=== PATIENT | female | born 1970 | race African-American/Black ===

== ENCOUNTER 2017-05-07 19:49 | Emergency (ER) | payer SELFPAY ==
[2017-05-07 20:05] VITALS: BP 167/113
[2017-05-07] MEDS ORDERED: HYDR-971 PO (20:39)
--- NOTE | 2017-05-07 20:39 | PHYS DOC ---
Past Medical History Past Medical History: Arthritis, Asthma, Hypertension, Other Additional Past Medical Histor: HEART MURMUR Past Surgical History: Tubal ligation, Other Additional Past Surgical Histo: RHINOPLASTY Alcohol Use: None Drug Use: None Adult General Chief Complaint Chief Complaint: PAIN CONTROL [facility] HPI Patient is a 47 year old female presents to the emergency department stating she is having bilateral knee pain and discomfort. Patient states that she has history of arthritis in both knees. Patient states she had been seeing in which she has been unable to see him due to no insurance. She states that he is requesting large amount of money upfront piece seen. Patient states she needs bilateral knee replacements but cannot afford to have that completed. She states that she has taken hydrocodone in the past for severe pain and discomfort however has not had the medication for quite some time. She states that she has taken Advil 400 mg with minimal relief. She also states that she has been taking Percogesic which had been helping with the pain and discomfort however is not helping any longer. Patient denies any numbness or tingling in bilateral lower extremities. Patient states that she has been recently needing to use a crutch to ambulate. Patient denies any injury or trauma to the knees. She does state that she feels that she has ewkd-im-[id number] grinding. Review of Systems Review of Systems Constitutional: Denies fever or chills [] Eyes: Denies change in visual acuity, redness, or eye pain [] HENT: Denies nasal congestion or sore throat [] Respiratory: Denies cough or shortness of breath [] Cardiovascular: No additional information not addressed in HPI [] GI: Denies abdominal pain, nausea, vomiting, bloody stools or diarrhea [] : Denies dysuria or hematuria [] Musculoskeletal: Denies back pain. Bilateral knee pain Integument: Denies rash or skin lesions [] Neurologic: Denies headache, focal weakness or sensory changes [] Endocrine: Denies polyuria or polydipsia [] All other systems were reviewed and found to be within normal limits, except as documented in this note. Allergies Allergies Allergies Coded Allergies Type Severity Reaction Last Updated Verified acetaminophen Allergy Unknown Nausea and Vomiting 10/10/13 Yes hydrocodone Allergy Unknown Nausea and Vomiting 10/10/13 Yes Physical Exam Physical Exam Constitutional: Well developed, well nourished, no acute distress, non-toxic appearance. [] HENT: Normocephalic, atraumatic, bilateral external ears normal, oropharynx moist, no oral exudates, nose normal. [] Eyes: PERRLA, EOMI, conjunctiva normal, no discharge. [] Neck: Normal range of motion, no tenderness, supple, no stridor. [] Cardiovascular:Heart rate regular rhythm, no murmur [] Lungs & Thorax: Bilateral breath sounds clear to auscultation [] Skin: Warm, dry, no erythema, no rash. [] Extremities: Bilateral knee tenderness, no cyanosis, no clubbing, ROM intact, no edema. Peripheral pulses 2+ cap refill brisk less than 2 seconds patient with full range of motion noted to the knees. Neurologic: Alert and oriented X 3, normal motor function, normal sensory function, no focal deficits noted. [] Psychologic: Affect normal, judgement normal, mood normal. [] Current Patient Data Vital Signs Vital Signs Date Time Temp Pulse Resp B/P (MAP) Pulse Ox O2 Delivery O2 Flow Rate FiO2 05/07/17 20:05 99.0 108 20 167/113 (131) 97 Room Air 99.0 EKG EKG [] Radiology/Procedures Radiology/Procedures [] Course & Med Decision Making Course & Med Decision Making Pertinent Labs and Imaging studies reviewed. (See chart for details) Patient will be discharged home in stable condition with hydrocodone. She was instructed at this medication will cause drowsiness do not take any be alert and oriented. Patient states that she has no difficulty taking hydrocodone in the past. She normally takes hydrocodone and Ultram. Recommended 800 mg of Advil every 8 hours. Also recommended that she contact [facility] to see if they require upfront payment to see orthopedic. Patient agrees with discharge instructions, treatment regimens and follow-up recommendations. I've spoken with the patient and/or caregivers. I've explained the patient's condition, diagnosis and treatment plan based on information available to me at this time. I've answered the patient's and/or caregivers questions and addressed any concerns. The patient and/or caregivers have a good understanding the patient's diagnosis, condition and treatment plan as can be expected at this point. Vital signs have been stabilized. The patient's condition is stable for discharge from the emergency department. The patient will pursue further outpatient evaluation with her primary care provider or other designated consulting physician as outlined in the discharge instructions. Patient and/or caregivers are agreeable to this plan of care and follow-up instructions have been explained in detail. The patient and/or caregivers have received these instructions in written format and expressed understanding of these discharge instructions. The patient and her caregivers are aware that if any significant change in condition or worsening of symptoms should prompt him to immediately return to this of the closest emergency department. If an emergent department is not readily available I would encourage him to call 911.[] Dragon Disclaimer Dragon Disclaimer This electronic medical record was generated, in whole or in part, using a voice recognition dictation system. Departure Departure Impression: Primary Impression: Bilateral knee pain Disposition: HOME, SELF-CARE Condition: STABLE Referrals: KATELYNN FELICIANO MD (PCP) Patient Instructions: Knee Pain, [id number] Additional Instructions: Activity as tolerated. Medications as prescribed. Advil 800 mg every 8 hours with food stopped taking Tamar developed an upset stomach. Hydrocodone may cause drowsiness do not take any be alert and oriented. Contact [facility] to see if they provide orthopedic services without payment upfront. Follow-up with orthopedic as soon as she can. Return back back to the emergency department for signs and symptoms of become worse. Scripts Hydrocodone/Apap 5-325 (NORCO 5-325 TABLET) 1 Each Tablet 1 TAB PO PRN Q6HRS Y for PAIN, #15 TAB 0 Refills Prov: BRADY PEREIRA APRN 05/07/17 Problem Qualifiers Primary Impression: Bilateral knee pain Chronicity: unspecified Qualified Codes: M25.561 - Pain in right knee; M25.562 - Pain in left knee BRADY PEREIRA [employer] May 07, 2017 20:39
[2017-05-07] MEDS ORDERED: HYDROcodone/APAP 5/325MG 1 TAB TABLET PO ONE (20:45)
== END 2017-05-07 20:50 | disposition home or self-care (01) ==
LOC: ER 19:49
DX: M25.561 Pain in right knee (principal); M25.562 Pain in left knee; I10 Essential (primary) hypertension; J45.909 Unspecified asthma, uncomplicated; M19.90 Unspecified osteoarthritis, unspecified site; Z98.51 Tubal ligation status; Z88.5 Allergy status to narcotic agent; Z88.6 Allergy status to analgesic agent
CPT/HCPCS: 99284-25